=== PATIENT | female | born 1975 | race Caucasian/White ===

== ENCOUNTER 2020-05-28 14:55 | Outpatient (CLI) | payer BC, SELFPAY ==
--- NOTE | 2020-05-28 15:03 | XRR_ITS ---
PROCEDURE INFORMATION: Exam: XR Lumbosacral Spine, 2 or 3 Views Exam date and time: 05/28/2020 3:09 PM Age: 44 years old Clinical indication: Pain; Lumbago with sciatica; Left; Additional info: Low back pain, pain down left leg since Monday TECHNIQUE: Imaging protocol: XR of the lumbosacral spine, 2 or 3 views. COMPARISON: No relevant prior studies available. FINDINGS: Vertebrae: Normal. No acute fracture. Normal alignment. Soft tissues: Unremarkable. XR/XR lumbar spine 2-3V* [id number] IMPRESSION: No acute findings.
== END 2020-05-28 14:56 | disposition home or self-care (01) ==
LOC: RADWPI 14:59
PROVIDERS: Family Provider Family Medicine; Visit Provider Family Medicine
DX: M54.5 Low back pain (principal); M54.30 Sciatica, unspecified side
CPT/HCPCS: 72100

== ENCOUNTER 2020-10-08 15:35 | Outpatient (CLI) | payer BC, SELFPAY ==
--- NOTE | 2020-10-08 15:40 | MM_ITS ---
WS: [id number] BILATERAL SCREENING DIGITAL MAMMOGRAM WITH CAD HISTORY: SCREENING COMPARISON: 10/02/2019 and 08/30/2018 Bilateral CC and MLO views submitted. Computer aided detection analyzed. Breast composition: The breasts are heterogeneously dense, which may obscure small masses. No suspici ous masses, microcalcifications or architectural distortion. Stable mild distortion of the RIGHT pam st as seen on prior studies. No interval change. No calcifications or distortion within either breast . MM/[place] [id number] IMPRESSION: BI-RADS: 2-Benign FOLLOW UP: 1 Year Follow-up
== END 2020-10-08 15:36 | disposition home or self-care (01) ==
LOC: RADSHAW 15:38
PROVIDERS: PCP Family Medicine; Visit Provider Family Medicine
DX: Z12.31 Encounter for screening mammogram for malignant neoplasm of breast (principal)
CPT/HCPCS: 77067

== ENCOUNTER 2021-06-30 12:00 | Outpatient (CLI) | payer BC, SELFPAY | END 2021-06-30 12:01 | disposition home or self-care (01) | LOC: SLEEP 07-01 13:07 | PROVIDERS: PCP Family Medicine; Visit Provider Family Medicine | DX: G47.10 Hypersomnia, unspecified (principal) | CPT/HCPCS: G0399 ==

== ENCOUNTER 2023-08-11 08:10 | Outpatient (CLI) | payer BC, SELFPAY ==
--- NOTE | 2023-08-11 08:17 | MM_ITS ---
WS: [id number] BILATERAL SCREENING DIGITAL TOMOSYNTHESIS MAMMOGRAM WITH CAD HISTORY: SCREENING COMPARISON: 10/08/2020, 10/02/2000 CC and MLO views with tomosynthesis and synthetic mammography submitted. Computer aided detection tamara lyzed. Breast composition: There are scattered areas of fibroglandular density. No suspicious masses, microc alcifications or architectural distortion. Small volume RIGHT breast due to chest wall deformity. The entire RIGHT breast and limited pectoralis muscle is identified on the RIGHT. No change. IMPRESSION: MM/[place] [id number] BI-RADS: 2-Benign FOLLOW UP: 1 Year Follow-up
== END 2023-08-11 08:11 | disposition home or self-care (01) ==
PROVIDERS: PCP Family Medicine; Visit Provider Family Medicine
DX: Z12.31 Encounter for screening mammogram for malignant neoplasm of breast (principal)
CPT/HCPCS: 77063; 77067

== ENCOUNTER 2024-08-14 12:54 | Outpatient (CLI) | payer BC, SELFPAY ==
[2024-08-14 13:10] VITALS: PULSE 72; RESP 18; O2SAT 99
[2024-08-14] MEDS: albuterol 2.5 mg/3 mL Neb INHALATION (13:10)
[2024-08-14 13:14] VITALS: PULSE 80
== END 2024-08-14 12:55 | disposition home or self-care (01) ==
PROVIDERS: PCP Family Medicine; Visit Provider Family Medicine
DX: J45.50 Severe persistent asthma, uncomplicated (principal)
CPT/HCPCS: 94060; 94726; 94729; J7613

== ENCOUNTER 2024-12-27 12:35 | Outpatient (CLI) | payer BC, SELFPAY ==
--- NOTE | 2024-12-27 | MM_ITS ---
WS: [id number] Bilateral screening 3D tomosynthesis digital mammogram, 12/27/2024 12:39 PM Clinical Data: ANNUAL SCREEN Comparison: 08/11/2023, 10/08/2020, 10/02/2019, 08/30/2018, 06/26/2017, 05/29/2012. Findings: No spiculated masses or clustered calcifications are seen. There are no secondary signs of carcinoma. The right breast is smaller than the left breast. MM/MM scr BI tomosynthesis [id number] Impression: Negative bilateral mammogram unchanged. Recommend annual screening mammograms. BIRADS: 1 - Negative. FOLLOW UP: 1 Year Follow-up DENSITY: There are scattered areas of fibroglandular density. The CAD construction checker was used
== END 2024-12-27 12:36 | disposition home or self-care (01) ==
LOC: RAD 12:36
PROVIDERS: PCP Family Medicine; Visit Provider Family Medicine
DX: Z12.31 Encounter for screening mammogram for malignant neoplasm of breast (principal); R92.323 Mammographic fibroglandular density, bilateral breasts
CPT/HCPCS: 77063; 77067